=== PATIENT | female | born 1965 | race Two or more races ===

== ENCOUNTER 2016-10-25 17:23 | Emergency (ER) | payer OTHER ==
[~2016-10-25 17:23] MED LIST: IBUP-1060 PO; INSU100V8 SQ; insulin; metformin
[2016-10-25 17:32] VITALS: BP 134/74
[2016-10-25] MEDS ORDERED: FLUT9.9S NS (18:36)
[2016-10-25] MEDS ORDERED: PROAIR RESPICL90 MCG IH (18:36)
[2016-10-25] MEDS ORDERED: PROM5SYR2 PO (18:36)
--- NOTE | 2016-10-25 18:36 | PHYS DOC ---
Past Medical History Past Medical History: Diabetes-Type II Past Surgical History: , Hysterectomy Additional Past Surgical Histo: neck surgery Alcohol Use: None Drug Use: None Adult General Chief Complaint Chief Complaint: Congestion HPI HPI Patient is a 50 year old female who presents with a productive cough with nasal congestion for 3 days. Patient denies any fevers. Denies any body aches. Review of Systems Review of Systems Constitutional: See history of present illness Eyes: Denies change in visual acuity, redness, or eye pain [] HENT: Nasal congestion Respiratory: Productive cough Cardiovascular: No additional information not addressed in HPI [] GI: Denies abdominal pain, nausea, vomiting, bloody stools or diarrhea [] : Denies dysuria or hematuria [] Musculoskeletal: Denies back pain or joint pain [] Integument: Denies rash or skin lesions [] Neurologic: Denies headache, focal weakness or sensory changes [] Endocrine: Denies polyuria or polydipsia [] Allergies Allergies Allergies Coded Allergies Type Severity Reaction Last Updated Verified No Known Drug Allergies 10/01/14 No Physical Exam Physical Exam Constitutional: Well developed, well nourished, no acute distress, non-toxic appearance. [] HENT: Normocephalic, atraumatic, bilateral external ears normal, oropharynx moist, no oral exudates, patient is nasally congested. Eyes: PERRLA, EOMI, conjunctiva normal, no discharge. [] Neck: Normal range of motion, no tenderness, supple, no stridor. [] Cardiovascular:Heart rate regular rhythm, no murmur [] Lungs & Thorax: Bilateral breath sounds clear to auscultation [] Abdomen: Bowel sounds normal, soft, no tenderness, no masses, no pulsatile masses. [] Skin: Warm, dry, no erythema, no rash. [] Back: No tenderness, no CVA tenderness. [] Extremities: No tenderness, no cyanosis, no clubbing, ROM intact, no edema. [] Neurologic: Alert and oriented X 3, normal motor function, normal sensory function, no focal deficits noted. [] Psychologic: Affect normal, judgement normal, mood normal. [] Current Patient Data Vital Signs Vital Signs Date Time Temp Pulse Resp B/P Pulse Ox O2 Delivery O2 Flow Rate FiO2 10/25/16 17:32 97.8 75 20 100 Room Air 97.8 EKG EKG [] Radiology/Procedures Radiology/Procedures [] Course & Med Decision Making Course & Med Decision Making Pertinent Labs and Imaging studies reviewed. (See chart for details) This is a 50-year-old female patient who presents with a productive cough with nasal congestion for 3 days. Patient denies any fever. Chest x-ray interpreted by Dr. Das is negative for any acute findings. Symptoms are currently viral. Given a prescription for Flonase. Given a prescription for cough medicine. Over- the-counter medicines also recommended. Follow-up with primary care doctor week. Dragon Disclaimer Dragon Disclaimer This electronic medical record was generated, in whole or in part, using a voice recognition dictation system. Departure Departure Impression: Primary Impression: Upper respiratory infection Additional Impression: Cough Disposition: 01 HOME, SELF-CARE Condition: STABLE Referrals: VIRGEN IZQUIERDO MD (PCP) Follow-up with your own doctor in one week Patient Instructions: Cough, Adult, Upper Respiratory Infection, Adult Additional Instructions: You were seen for nasal congestion and cough. These symptoms are viral. Your chest x-ray is negative for any pneumonia or any acute findings. We put you on medications to manage your symptoms. Take them as prescribed. Follow-up with your own doctor in one week. Come back to the emergency room if symptoms worsen. Scripts Promethazine HCl/Codeine (Prometh-Codein 6.25-10 mg/5 ml)5 Ml Syrup5 Ml PO Q6HRS PRN COUGH #90 Prov:DALI BOWMAN APRN 10/25/16 Albuterol Sulfate (Proair Respiclick)90 Mcg Aer.pow.ba1 Puff IH PRN Q6HRS PRN SHORTNESS OF BREATH #1 INHALER Prov:DALI BOWMAN APRN 10/25/16 Fluticasone Propionate (Flonase Allergy Relief)9.9 Ml [place].susp2 Sprays NS DAILY #1 BOTTLE Prov:DALI BOWMAN APRN 10/25/16 Problem Qualifiers Primary Impression: Upper respiratory infection URI type: unspecified URI Qualified Code: J06.9 - Acute upper respiratory infection, unspecified DALI BOWMAN APRN Oct 25, 2016 18:36
--- NOTE | 2016-10-26 07:17 | RAD ---
Indication: Epigastric pain and cough. Time of exam 1733 hours. Comparison is made with prior chest from 02/17/2007. FINDINGS: The heart size is normal. The lungs are clear. No pleural effusion or pneumothorax is identified. The pulmonary vascularity is normal. IMPRESSION: No acute abnormality detected.
== END 2016-10-25 18:43 | disposition home or self-care (01) ==
LOC: ER 17:23
DX: J06.9 Acute upper respiratory infection, unspecified (principal); E11.9 Type 2 diabetes mellitus without complications; Z90.710 Acquired absence of both cervix and uterus
CPT/HCPCS: 71020; 99284-25

== ENCOUNTER → 2017-07-12 | Outpatient (CLI) | payer OTHER ==
[~2017-07-12] MED LIST changes: +FLUT9.9S NS; +PROAIR RESPICL90 MCG IH; +PROM5SYR2 PO
--- NOTE | 2017-07-12 15:43 | RAD ---
Indication left shoulder pain. Internally and externally rotated views of the left shoulder were obtained as well as a Y view. No acute or significant bony finding is seen.
--- NOTE | 2017-07-12 15:47 | RAD ---
Indication shoulder pain. AP odontoid and lateral views of the cervical spine were obtained. Anterior fusion is noted extending from C4 through C6. No complication is seen. An osteophyte is noted at C3. No acute finding is seen. The prevertebral soft tissues appear normal. IMPRESSION: Postop changes. No acute finding seen
== END | disposition home or self-care (01) ==
LOC: RAD 14:53
PROVIDERS: ATTEND Family Medicine
DX: M54.2 Cervicalgia (principal); M77.8 Other enthesopathies, not elsewhere classified; M25.512 Pain in left shoulder
CPT/HCPCS: 72040; 73030

== ENCOUNTER → 2017-07-17 | Outpatient (CLI) | payer OTHER ==
--- NOTE | 2017-07-17 08:59 | RAD ---
DATE: 07/17/2017. EXAM: DIGITAL SCREEN BILAT W/CAD. HISTORY: Routine mammographic screening. COMPARISON: None available. This is interpreted as a baseline study.. This study was interpreted with the benefit of Computerized Aided Detection (CAD). FINDINGS: The breast parenchyma is primarily fatty replaced. Breast parenchyma level density A.. There are no suspicious masses, microcalcifications or architectural distortion. There is no skin thickening or axillary adenopathy. Scattered punctate calcifications are benign. BI-RADS CATEGORY: 2 BENIGN FINDING(S). RECOMMENDED FOLLOW-UP: 12M 12 MONTH FOLLOW-UP. PQRS compliance statement: Patient information was entered into a reminder system with a target due date 07/17/2018 for the next mammogram. Mammography is a sensitive method for finding small breast cancers, but it does not detect them all and is not a substitute for careful clinical examination. A negative mammogram does not negate a clinically suspicious finding and should not result in delay in biopsying a clinically suspicious abnormality. "Our facility is accredited by the [employer] Mammography Program."
== END | disposition home or self-care (01) ==
LOC: MAMMO 08:04
PROVIDERS: ATTEND Obstetrics & Gynecology
DX: Z12.31 Encounter for screening mammogram for malignant neoplasm of breast (principal)
CPT/HCPCS: G0202; 77067

== ENCOUNTER → 2017-08-14 | Day surgery (SDC) | payer OTHER ==
[~2017-08-14] MED LIST changes: +CYCL5TAB PO; +HYDROmorphone 2 MG/ML VIAL IV PRN; +IV RINGERS,LACTATED 1000ML 1,000 ML IV SCH; +LIDOCAINE 1% PF 2 ML VIAL. ID PRN; +MIDAZOLAM HCL/PF 2 MG/2 ML VIAL. IV PRN; +MINO50CA PO; +MORPHINE SULFATE 4 MG/ML DISP.SYRIN. IV PRN; +NAPR-677 PO; +ONDANSETRON PF 4 MG/2 ML VIAL. IV PRN; +PROCHLORPERAZINE 10 MG/2 ML VIAL. IV PRN; +PROPOFOL 40 ML IV ONE; +fentaNYL PF VIAL 100 MCG/2 ML VIAL IV PRN
[2017-08-14 06:49] LABS: NEG OBC UR NEG; POS OBC UR POS
[2017-08-14 07:45] VITALS: BP 106/49
== END | disposition home or self-care (01) ==
LOC: ENDOS 06:11
PROVIDERS: ATTEND Internal Medicine Gastroenterology
DX: Z12.11 Encounter for screening for malignant neoplasm of colon (principal); K64.0 First degree hemorrhoids; E66.9 Obesity, unspecified; F32.9 Major depressive disorder, single episode, unspecified; E11.9 Type 2 diabetes mellitus without complications; Z86.69 Personal history of other diseases of the nervous system and sense organs; Z98.51 Tubal ligation status; Z90.710 Acquired absence of both cervix and uterus; Z86.39 Personal history of other endocrine, nutritional and metabolic disease
CPT/HCPCS: 45378; 81025; 82962; J2704

== ENCOUNTER → 2018-03-06 | Outpatient (CLI) | payer OTHER ==
[2018-03-06] MEDS: LIDOCAINE 1% Multi-Dose 20 ML VIAL. ID (14:53)
[2018-03-06] MEDS: BUPIVACAINE MPF 0.5% 10 ML VIAL for KCIC. IJ (14:53)
[2018-03-06] MEDS: methylPREDNISolone ACETATE 40 MG/ML VIAL. INT ART (14:53)
== END | disposition home or self-care (01) ==
LOC: KCIC 13:56
DX: M25.512 Pain in left shoulder (principal); M75.22 Bicipital tendinitis, left shoulder; E66.9 Obesity, unspecified; Z90.710 Acquired absence of both cervix and uterus; Z98.51 Tubal ligation status; E11.9 Type 2 diabetes mellitus without complications; F32.9 Major depressive disorder, single episode, unspecified; Z79.84 Long term (current) use of oral hypoglycemic drugs
CPT/HCPCS: 20610; 77002; J1030

== ENCOUNTER → 2018-07-25 | Outpatient (CLI) | payer OTHER ==
[2017-08-14 07:45] VITALS: BP 106/49
[~2018-07-25] MED LIST changes: -HYDROmorphone 2 MG/ML VIAL IV PRN; -IV RINGERS,LACTATED 1000ML 1,000 ML IV SCH; -LIDOCAINE 1% PF 2 ML VIAL. ID PRN; -MIDAZOLAM HCL/PF 2 MG/2 ML VIAL. IV PRN; -MINO50CA PO; +MINO50CA3 PO; -MORPHINE SULFATE 4 MG/ML DISP.SYRIN. IV PRN; -ONDANSETRON PF 4 MG/2 ML VIAL. IV PRN; -PROCHLORPERAZINE 10 MG/2 ML VIAL. IV PRN; -PROPOFOL 40 ML IV ONE; -fentaNYL PF VIAL 100 MCG/2 ML VIAL IV PRN
--- NOTE | 2018-07-25 16:20 | RAD ---
MR of the left shoulder Indication: Biceps tendinitis. Left shoulder pain, worse over the past year. Technique: Standard multiplanar sequences are obtained. Findings: Artifact: No significant image degradation. Acromioclavicular joint: Degenerative spurring with undersurface osteophytes. Rotator cuff: * Supraspinatus-infraspinatus tendon: Complete full-thickness supraspinatus tear, measures 2.5 cm AP diameter, with 2 cm retraction. * Subscapularis tendon: Tendinosis with mild partial tear * Muscle bulk: Mild atrophy * Subacromial subdeltoid bursa: Small effusion. Fluid: Trace glenohumeral effusion. Mild fluid in the subcoracoid bursa. Glenohumeral cartilage: No acute defect or advanced DJD. Labrum: No evidence of labral detachment. Biceps tendon: Tendinosis with at least partial tearing at the bicipital groove entrance. Bones: No lesion or acute fracture. Soft tissue: No acute findings. Impression: 1. Rotator cuff tear. Moderate full-thickness retracted tear of the supraspinatus tendon, mild partial subscapularis tendon tear. 2. Biceps tendinosis with tearing. Electronically signed by: Darwin Coelho MD (07/25/2018 4:17 PM) [id number]
== END | disposition home or self-care (01) ==
LOC: MRI 14:08
PROVIDERS: ATTEND Orthopaedic Surgery Sports Medicine
DX: S46.012A Strain of muscle(s) and tendon(s) of the rotator cuff of left shoulder, initial encounter (principal); M25.412 Effusion, left shoulder; M25.712 Osteophyte, left shoulder; M75.22 Bicipital tendinitis, left shoulder; X58.XXXA Exposure to other specified factors, initial encounter; Y93.89 Activity, other specified; Y92.89 Other specified places as the place of occurrence of the external cause; Y99.8 Other external cause status
CPT/HCPCS: 73221

== ENCOUNTER → 2018-07-29 | Outpatient (CLI) | payer OTHER ==
[2017-08-14 07:45] VITALS: BP 106/49
--- NOTE | 2018-07-30 09:32 | RAD ---
DATE: 07/29/2018 EXAM: MAMMO CUATE SCREENING BILATERAL HISTORY: Routine screening COMPARISON: 07/17/2017 This study was interpreted with the benefit of Computerized Aided Detection (CAD). Breast Density: FATTY The breast parenchyma is primarily fatty replaced. Breast parenchyma level density A. FINDINGS: 2-D and 3-D tomosynthesis imaging was performed in CC and MLO projections. No new or enlarging breast densities are seen. No suspicious microcalcifications are evident. IMPRESSION: There is no mammographic evidence of malignancy either breast. BI-RADS CATEGORY: 1 NEGATIVE RECOMMENDED FOLLOW-UP: 12M 12 MONTH FOLLOW-UP PQRS compliance statement: Patient information was entered into a reminder system with a target due date for the next mammogram. Mammography is a sensitive method for finding small breast cancers, but it does not detect them all and is not a substitute for careful clinical examination. A negative mammogram does not negate a clinically suspicious finding and should not result in delay in biopsying a clinically suspicious abnormality. "Our facility is accredited by the [employer] Mammography Program."
== END | disposition home or self-care (01) ==
LOC: MAMMO 15:11
PROVIDERS: ATTEND Obstetrics & Gynecology
DX: Z12.31 Encounter for screening mammogram for malignant neoplasm of breast (principal)
CPT/HCPCS: 77063; 77067

== ENCOUNTER 2018-09-10 07:47 | Day surgery (SDC) | payer OTHER ==
[~2018-09-10] VITALS: Ht 160 cm; Wt 78.0 kg
[~2018-09-10 07:47] MED LIST changes: +HYDROmorphone 2 MG/ML VIAL IV PRN; +IV RINGERS,LACTATED 1000ML 1,000 ML IV SCH; +LIDOCAINE 1% PF 2 ML VIAL. ID PRN; +MORPHINE SULFATE 2 MG/ML VIAL. IV PRN; +ONDANSETRON PF 4 MG/2 ML VIAL. IV PRN; +PROCHLORPERAZINE 10 MG/2 ML VIAL. IV PRN; +fentaNYL PF VIAL 100 MCG/2 ML VIAL IV PRN
[2018-09-10] MEDS ORDERED: MIDAZOLAM HCL/PF 2 MG/2 ML VIAL. ONE ×2 (08:35→08:58)
--- NOTE | 2018-09-10 08:43 | DISCH ---
DISCHARGE INSTRUCTIONS Condition on Discharge Condition on Discharge: Stable Activity After Discharge Activity Instructions for Disc: Activity as tolerated, Other, see below Other activity instructions: arm to remain in sling Driving Instructions after Dis: Do not drive today Weight Bearing Status after Di: No restrictions, Non weight bearing Diet after Discharge Diet after Discharge: Regular Wound Incision Care Wound/Incision Care: Ice to area for comfort, Keep wound/cast CDI, Change dressing Other wound/incision instructi: ok to change dressing after [address] after DC Call your doctor for: Concerns you may have Follow-Up Follow up with: [place] in 2 wks RICKI MONET II, MD Sep 10, 2018 08:43
[2018-09-10] MEDS ORDERED: LIDOCAINE 2% PF 2ML VIAL. ONE (08:59)
[2018-09-10] MEDS ORDERED: BUPIVACAINE MPF 0.5% 30 ML VIAL. ONE ×2 (08:59→09:02)
[2018-09-10] MEDS ORDERED: EPINEPHrine 1 MG/ML VIAL ONE (08:59)
[2018-09-10] MEDS ORDERED: EPINEPHrine VIAL 30 MG/30 ML VIAL ONE (09:02)
[2018-09-10] MEDS ORDERED: LIDOCAINE 1% PF 30 ML VIAL. ONE (09:02)
[2018-09-10] MEDS ORDERED: INSULIN LISPRO 100 UNIT/ML 3ML VIAL. SQ ONE ×2 (09:15→11:00)
[2018-09-10] MEDS ORDERED: DEXAMETHASONE SOD PHOS 20 MG/5 ML VIAL. ONE (10:38)
[2018-09-10] MEDS ORDERED: PROPOFOL 20 ML IV ONE (10:38)
[2018-09-10] MEDS ORDERED: LIDOCAINE 2% PF Vial for OR 5 ML VIAL. ONE (10:38)
[2018-09-10] MEDS ORDERED: SEVOFLURANE 61 TO 120 MINUTES. IH ONE (10:38)
[2018-09-10] MEDS ORDERED: ONDANSETRON PF 4 MG/2 ML VIAL. ONE (10:38)
[2018-09-10] MEDS ORDERED: KETOROLAC 30 MG/ML INJ FOR OR. INJ ONE (10:38)
[2018-09-10] MEDS ORDERED: oxyCODONE/APAP 5/325 1 TAB TABLET ONE (12:08)
[2018-09-10] MEDS ORDERED: oxyCODONE/APAP 5/325 1 TAB TABLET PO ONE (12:15)
--- NOTE | 2018-09-10 12:42 | PDOC4 ---
Operative Note Operative Note Date of procedure: 09/10/2018 Surgeon: Jordy Monet Spray Operator: Shayla Vaz, certified rehabilitation counselor Preoperative diagnosis: left shoulder rotator cuff tear Postoperative diagnosis: Same Procedure performed: arthroscopic left shoulder rotator cuff repair Anesthesia: Gen. plus regional nerve block Blood loss: 10 mL Complications: None Findings: intact glenohumeral cartilage Intact labrum circumferentially Fraying and upper border of subscapularis 2.5 cm rotator cuff tear Small amount of fraying of biceps tendon No loose bodies Components inserted: Brewster and nephew helacoil anchor X2; footprint for lateral row fixation Reason for procedure: Patient is a very pleasant female who has had persistent shoulder pain and dysfunction for several months. Clinical and radiographic examination including MRI were consistent with the above preoperative diagnoses and after failure of conservative therapies including physical therapy, anti- inflammatories, and injections, she diet discussed the risks, benefits, alternatives to proceeding with surgery and she wished to proceed. Description of procedure: Patient was greeted in the preoperative area by myself where the correct extremity was verified and marked. She was taken back to the operative suite after she had regional anesthesia placed by the anesthesiology team. Once in the operating room, underwent successful induction of a general anesthetic. Her antibiotics have been started. She was then sat up in a beachchair position with large pad under her legs, C-spine maintained in neutral position, she was secured to the bed with all pressure points padded. After this, her left upper extremity and shoulder were prepped and draped in our usual sterile fashion and our standard preoperative timeout was conducted. I then palpated and marked surface anatomy and used a spinal needle to localize a posterior superior portal and incised skin in accordance with this. After this , I entered the glenohumeral joint with the blunt arthroscopic trocar followed by the camera. I then used a spinal needle to localize an anterosuperior portal and incised skin in accordance with this. I then introduced the probe and conducted my diagnostic arthroscopy with above noted findings. I then created my lateral portal under spinal localization and inserted the shaver to prepare the rotator cuff footprint, taking care not to decorticate. After this, I repositioned the camera into the subacromial space and performed a bursectomy with comminution of shaver and electrocautery device. I then placed my cannula through the lateral portal. I then created an accessory anterolateral and posterolateral portals for suture management. I then used my starting awl to create 2 holes for my suture anchors and placed 2 suture anchors. I then shuttled the sutures through in a simple configuration and tied them down with arthroscopic knot-tying techniques from posterior to anterior, I was careful not to entrap the biceps tendon anteriorly. I cut one and from each suture, I used the remaining limb from all 4 to incorporate this into a lateral row repair with a footprint anchor. I tested the repair, no motion or gapping under passive range of motion. I removed all excess arthroscopic fluid and the arthroscopic interpretation. The portals were closed with simple interrupted 3- 0 nylon. The shoulder and arm were cleansed and dried and a sterile dressing was applied followed by an abduction pillow sling. Patient tolerated surgery well. No complications. At the conclusion of surgery, the patient was laid gently supine and transferred gently supine to the recovery room cart and taken to PACU in a stable and extubated condition. Postoperative plan is to be nonweightbearing for 6 weeks. Arm to remain in the sling. Postoperative instructions were discussed with the patient and given written form. Shell follow up with me in 2 weeks, sooner should a problem arise. JORDY MONET II, MD Sep 10, 2018 12:42
[2018-09-10 12:50] VITALS: BP 122/72
== END 2018-09-10 12:50 | disposition home or self-care (01) ==
LOC: SURG 07:47
PROVIDERS: ATTEND Orthopaedic Surgery Sports Medicine
DX: S46.012A Strain of muscle(s) and tendon(s) of the rotator cuff of left shoulder, initial encounter (principal); S46.212A Strain of muscle, fascia and tendon of other parts of biceps, left arm, initial encounter; F32.9 Major depressive disorder, single episode, unspecified; E11.9 Type 2 diabetes mellitus without complications; Z98.51 Tubal ligation status; M19.90 Unspecified osteoarthritis, unspecified site; Z90.710 Acquired absence of both cervix and uterus; Z98.890 Other specified postprocedural states; Z98.1 Arthrodesis status; M48.02 Spinal stenosis, cervical region; Z79.899 Other long term (current) drug therapy; Z79.84 Long term (current) use of oral hypoglycemic drugs; X58.XXXA Exposure to other specified factors, initial encounter; Y93.89 Activity, other specified; Y92.89 Other specified places as the place of occurrence of the external cause; Y99.8 Other external cause status
CPT/HCPCS: 29827; 82962; A7015; C1713; C1782; J0171; J0690; J1100; J1885; J2001; J2250; J2405; J2704; J3490

== ENCOUNTER 2019-03-30 14:06 | Emergency (ER) | payer OTHER ==
[~2019-03-30] VITALS: Ht 160 cm; Wt 81.6 kg
[~2019-03-30 14:06] MED LIST changes: -HYDROmorphone 2 MG/ML VIAL IV PRN; -IV RINGERS,LACTATED 1000ML 1,000 ML IV SCH; -LIDOCAINE 1% PF 2 ML VIAL. ID PRN; -MORPHINE SULFATE 2 MG/ML VIAL. IV PRN; -ONDANSETRON PF 4 MG/2 ML VIAL. IV PRN; -PROCHLORPERAZINE 10 MG/2 ML VIAL. IV PRN; -fentaNYL PF VIAL 100 MCG/2 ML VIAL IV PRN
[2019-03-30] MEDS ORDERED: DIPHTH,PERTUSS(ACELL),TET TOX 0.5 ML DISP.SYRIN. VAX IM ONE (15:30)
--- NOTE | 2019-03-30 15:42 | PHYS DOC ---
Past Medical History Past Medical History: Diabetes-Type II Past Surgical History: , Hysterectomy, Other Additional Past Surgical Histo: neck surgery, Left rotator cuff Alcohol Use: None Drug Use: None Adult General Chief Complaint Chief Complaint: MECHANICAL FALL HPI HPI Patient is a 53 year old female with history of diabetes type 2 who presents to the ED today complaining of 5 out of 10 bilateral jaw pain, knee pain, wrist pain, status post falling. Patient works at [employer], was walking on a sticky floor slid and fell. No LOC. Patient denies being on blood thinners. States the pain is worse on the left wrist right knee and bilateral jaw and requesting imaging. Patient is refusing imaging on the left knee and right wrist. Review of Systems Review of Systems Constitutional: Denies fever or chills [] Eyes: Denies change in visual acuity, redness, or eye pain [] HENT: Reports bilateral jaw pain. Denies nasal congestion or sore throat [] Respiratory: Denies cough or shortness of breath [] Cardiovascular: No additional information not addressed in HPI [] GI: Denies abdominal pain, nausea, vomiting, bloody stools or diarrhea [] : Denies dysuria or hematuria [] Musculoskeletal: Reports bilateral wrist pain, bilateral knee pain Integument: Denies rash or skin lesions [] Neurologic: Denies headache, focal weakness or sensory changes [] All other systems were reviewed and found to be within normal limits, except as documented in this note. Current Medications Current Medications Current Medications Medications (Trade) Dose Ordered Sig/Rsoe Marie Start Time Stop Time Status Last Admin Dose Admin Diphtheria/ Tetanus/Acell Pertussis (Boostrix) 0.5 ml ONCE ONCE 03/30/19 15:30 03/30/19 15:35 DC 03/30/19 15:57 0.5 ML Allergies Allergies Allergies Coded Allergies Type Severity Reaction Last Updated Verified No Known Drug Allergies 08/14/17 No Physical Exam Physical Exam Constitutional: Well developed, well nourished, no acute distress, non-toxic appearance. [] HENT: Normocephalic, atraumatic, bilateral external ears normal, oropharynx moist, no oral exudates, nose normal. No crepitus noted on the jaw bilaterally upper and lower sides. Eyes: PERRLA, EOMI, conjunctiva normal, no discharge. [] Neck: Normal range of motion, no tenderness, supple, no stridor. [] Cardiovascular:Heart rate regular rhythm, no murmur [] Lungs & Thorax: Bilateral breath sounds clear to auscultation [] Abdomen: Bowel sounds normal, soft, no tenderness, no masses, no pulsatile masses. [] Skin: Warm, dry, no erythema, no rash. [] Back: No tenderness, no CVA tenderness. [] Extremities: Right knee with an abrasion, slight tenderness on palpation of the anterior right knee. Full range of motion to bilateral knees. Negative Isaac sign, negative Rosendo sign, negative anterior-posterior drawer sign. +2 bilateral pedal pulses. Left wrist and right wrist with no obvious deformity. No scaphoid tenderness bilaterally. Full range of motion to bilateral wrist and fingers. +2 bilateral radial pulses. Adequate radial, medial, ulnar sensation to bilateral fingers. Cap refill less than 2 seconds bilaterally. Neurologic: Alert and oriented X 3, normal motor function, normal sensory function, no focal deficits noted. [] Psychologic: Affect normal, judgement normal, mood normal. [] Current Patient Data Vital Signs Vital Signs Date Time Temp Pulse Resp B/P (MAP) Pulse Ox O2 Delivery O2 Flow Rate FiO2 03/30/19 15:16 98.8 98 18 159/80 (106) 99 Room Air 98.8 EKG EKG [] Radiology/Procedures Radiology/Procedures []PROCEDURE: [facility] Compliance Statement: One or more of the following individualized dose reduction techniques were utilized for this examination: 1. Automated exposure control 2. Adjustment of the mA and/or kV according to patient size 3. Use of iterative reconstruction technique CT head, maxillofacial and cervical spine without contrast 03/30/2019 3:18 PM INDICATION: Fall on face with neck pain COMPARISON: None available TECHNIQUE: Multiple axial CT images of the head were obtained from skull base through the vertex without intravenous contrast. Multiple axial CT images of the cervical spine and maxillofacial structures were obtained without intravenous contrast. Coronal and sagittal reformats are provided. FINDINGS: Head: Ventricles, sulci and basal cisterns are within normal limits. There is no hydrocephalus. Blum-white matter differentiation is normal. There is no acute intracranial hemorrhage. There is no mass, mass effect or midline shift. Posterior fossa is normal in appearance. There is no acutely displaced nasal bone fracture. Osseous orbits are intact. Globes are spherical and contour. There is no lens displacement. Paranasal sinuses are well aerated. Ostiomeatal units are widely patent. Nasal septum is minimally deviated to the left. Maxilla and mandible appear intact. No significant soft tissue swelling is identified. Pterygoid plates are intact. Mastoid air cells are well aerated. Cervical spine: Alignment of the cervical spine is normal. Skull base is intact. Craniocervical junction is normal in appearance. Atlantoaxial articulation is normal. Vertebral body heights are maintained without evidence for acute fracture. Anterior cervical discectomy and fusion is identified from C4 through C6. At C3-C4, there is a central disc extrusion resulting in at least moderate spinal canal stenosis. There is no prevertebral soft tissue swelling. Thyroid gland is normal in appearance. Visualized portions of the lung apices are normal without evidence for suspicious pulmonary nodule or infiltrate. IMPRESSION: 1. No acute intracranial hemorrhage. 2. No acute fracture or malalignment of the cervical spine. 3. No acute maxillofacial fracture. 4. Central disc extrusion at C3-C4 results in at least moderate spinal canal stenosis. Electronically signed by: Jannette Armstrong MD (03/30/2019 3:48 PM) [id number] DICTATED and SIGNED BY: JANNETTE ARMSTRONG MD DATE: 03/30/19 3604 PROCEDURE: KNEE RIGHT 3V KNEE RIGHT 3V, WRIST 3V LEFT History: Patient fell. Left wrist and right knee pain.. 3 view right knee No evidence of an acute fracture. No bone destruction. Joint spaces are intact. No significant soft tissue abnormality. IMPRESSION: No evidence of acute fracture or dislocation. 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 No evidence of acute fracture. No evidence of dislocation. No aggressive bone destruction. IMPRESSION: No evidence of acute fracture or dislocation. MR could be of benefit for further evaluation if symptoms do not improve. Electronically signed by: Darwin Coelho MD (03/30/2019 3:51 PM) [id number] DICTATED and SIGNED BY: DARWIN COELHO MD DATE: 03/30/19 3013 Course & Med Decision Making Course & Med Decision Making Pertinent Labs and Imaging studies reviewed. (See chart for details) This is a 53-year-old female patient presenting to the ED today with wrist pain bilaterally, lateral knee pain and neck and jaw pain after falling. CT of the head, maxillofacial, cervical spine are negative. Right knee x-ray, left wrist x-rays are negative for any acute findings. Patient refused right wrist and left wrist xrays. Tetanus updated, discharged to home. Ice and elevation encouraged. Follow-up with PCP in 1-2 weeks. Dragon Disclaimer Dragon Disclaimer This electronic medical record was generated, in whole or in part, using a voice recognition dictation system. Departure Departure Impression: Primary Impression: Fall from standing Additional Impressions: Left wrist sprain Contusion of right knee Acute cervical sprain Facial contusion Disposition: HOME, SELF-CARE Condition: STABLE Referrals: DARWIN IZQUIERDO MD (PCP) follow up in 2 weeks Patient Instructions: Fall Prevention and Home Safety, Wrist Sprain with [facility] Additional Instructions: You were evaluated in the emergency room. Your CT of the head, neck, maxillofacial were negative for any acute findings. Your right knee x-rays and left wrist x-rays are negative. Ice elevate the affected areas. Follow-up with your doctor in 1-2 weeks. Tylenol or Motrin for pain. Problem Qualifiers Primary Impression: Fall from standing Encounter type: initial encounter Qualified Codes: W19.XXXA - Unspecified fall, initial encounter Additional Impressions: Left wrist sprain Encounter type: initial encounter Qualified Codes: S63.502A - Unspecified sprain of left wrist, initial encounter Contusion of right knee Encounter type: initial encounter Qualified Codes: S80.01XA - Contusion of right knee, initial encounter Acute cervical sprain Encounter type: initial encounter Qualified Codes: S13.9XXA - Sprain of j oints and ligaments of unspecified parts of neck, initial encounter Facial contusion Encounter type: initial encounter Qualified Codes: S00.83XA - Contusion of other part of head, initial encounter DALI BOWMAN DIRECTOR SECURITY RISK MANAGEMENT Mar 30, 2019 15:42
--- NOTE | 2019-03-30 15:51 | RAD ---
PQRS Compliance Statement: One or more of the following individualized dose reduction techniques were utilized for this examination: 1. Automated exposure control 2. Adjustment of the mA and/or kV according to patient size 3. Use of iterative reconstruction technique CT head, maxillofacial and cervical spine without contrast 03/30/2019 3:18 PM INDICATION: Fall on face with neck pain COMPARISON: None available TECHNIQUE: Multiple axial CT images of the head were obtained from skull base through the vertex without intravenous contrast. Multiple axial CT images of the cervical spine and maxillofacial structures were obtained without intravenous contrast. Coronal and sagittal reformats are provided. FINDINGS: Head: Ventricles, sulci and basal cisterns are within normal limits. There is no hydrocephalus. Blum-white matter differentiation is normal. There is no acute intracranial hemorrhage. There is no mass, mass effect or midline shift. Posterior fossa is normal in appearance. There is no acutely displaced nasal bone fracture. Osseous orbits are intact. Globes are spherical and contour. There is no lens displacement. Paranasal sinuses are well aerated. Ostiomeatal units are widely patent. Nasal septum is minimally deviated to the left. Maxilla and mandible appear intact. No significant soft tissue swelling is identified. Pterygoid plates are intact. Mastoid air cells are well aerated. Cervical spine: Alignment of the cervical spine is normal. Skull base is intact. Craniocervical junction is normal in appearance. Atlantoaxial articulation is normal. Vertebral body heights are maintained without evidence for acute fracture. Anterior cervical discectomy and fusion is identified from C4 through C6. At C3-C4, there is a central disc extrusion resulting in at least moderate spinal canal stenosis. There is no prevertebral soft tissue swelling. Thyroid gland is normal in appearance. Visualized portions of the lung apices are normal without evidence for suspicious pulmonary nodule or infiltrate. IMPRESSION: 1. No acute intracranial hemorrhage. 2. No acute fracture or malalignment of the cervical spine. 3. No acute maxillofacial fracture. 4. Central disc extrusion at C3-C4 results in at least moderate spinal canal stenosis. Electronically signed by: Ewa Boyer MD (03/30/2019 3:48 PM) [facility]
--- NOTE | 2019-03-30 15:54 | RAD ---
KNEE RIGHT 3V, WRIST 3V LEFT History: Patient fell. Left wrist and right knee pain.. 3 view right knee No evidence of an acute fracture. No bone destruction. Joint spaces are intact. No significant soft tissue abnormality. IMPRESSION: No evidence of acute fracture or dislocation. 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 No evidence of acute fracture. No evidence of dislocation. No aggressive bone destruction. IMPRESSION: No evidence of acute fracture or dislocation. MR could be of benefit for further evaluation if symptoms do not improve. Electronically signed by: Darwin Coelho MD (03/30/2019 3:51 PM) [facility]
[2019-03-30 16:26] VITALS: BP 129/64
== END 2019-03-30 16:26 | disposition home or self-care (01) ==
LOC: ER 14:06
DX: S13.9XXA Sprain of joints and ligaments of unspecified parts of neck, initial encounter (principal); S63.502A Unspecified sprain of left wrist, initial encounter; S80.01XA Contusion of right knee, initial encounter; S00.83XA Contusion of other part of head, initial encounter; E11.9 Type 2 diabetes mellitus without complications; Z98.890 Other specified postprocedural states; Z98.1 Arthrodesis status; M48.02 Spinal stenosis, cervical region; W18.39XA Other fall on same level, initial encounter; Y93.01 Activity, walking, marching and hiking; Y92.238 Other place in hospital as the place of occurrence of the external cause; Y99.0 Civilian activity done for income or pay
CPT/HCPCS: 70450; 70486; 72125; 73110; 73562; 90471; 90715; 99284-25

== ENCOUNTER → 2019-08-04 | Outpatient (CLI) | payer OTHER ==
--- NOTE | 2019-08-05 11:01 | RAD ---
DATE: 08/04/2019. EXAM: MAMMO CUATE SCREENING BILATERAL. HISTORY: Routine mammographic screening. COMPARISON: 07/29/2018. This study was interpreted with the benefit of Computerized Aided Detection (CAD). FINDINGS: Breast Density: FATTY The breast parenchyma is primarily fatty replaced. Breast parenchyma level density A.. There are no suspicious masses, microcalcifications or architectural distortion. The parenchymal pattern is stable. BI-RADS CATEGORY: 1 NEGATIVE. RECOMMENDED FOLLOW-UP: 12M 12 MONTH FOLLOW-UP. PQRS compliance statement: Patient information was entered into a reminder system with a target due date 08/04/2020 for the next mammogram. Mammography is a sensitive method for finding small breast cancers, but it does not detect them all and is not a substitute for careful clinical examination. A negative mammogram does not negate a clinically suspicious finding and should not result in delay in biopsying a clinically suspicious abnormality. "Our facility is accredited by the [employer] Mammography Program."
== END | disposition home or self-care (01) ==
LOC: MAMMO 14:22
PROVIDERS: ATTEND Obstetrics & Gynecology
DX: Z12.31 Encounter for screening mammogram for malignant neoplasm of breast (principal)
CPT/HCPCS: 77063; 77067

== ENCOUNTER → 2019-12-30 | Outpatient (CLI) | payer OTHER ==
[2019-12-30 11:52] LABS: CALCIUM 9.5 mg/dL (8.5-10.1); CREATININE 0.6 mg/dL (0.6-1.0); GFR 104.6; POTASSIUM 4.7 mmol/L (3.5-5.1)
[2019-12-30 12:02] LABS: CHOLESTEROL/HDL RATIO 4.5
== END ==
LOC: LAB 11:12
PROVIDERS: ATTEND Family Medicine
DX: Z13.9 Encounter for screening, unspecified (principal); E11.9 Type 2 diabetes mellitus without complications
CPT/HCPCS: 36415; 80048; 80061; 83036

== ENCOUNTER → 2020-04-15 | Outpatient (CLI) | payer OTHER ==
[2020-04-15 11:17] LABS: HEMATOCRIT 39.6 % (36.0-47.0); HEMOGLOBIN 13.6 g/dL (12.0-15.5); RED BLOOD COUNT 4.38 x10^6/uL (3.50-5.40); RED CELL DISTRIBUTION WIDTH 13.5 % (11.5-14.5); WHITE BLOOD COUNT 6.5 x10^3/uL (4.0-11.0)
[2020-04-15 11:30] LABS: ALBUMIN/GLOBULIN RATIO 1.1 (1.0-1.7); CALCIUM 9.1 mg/dL (8.5-10.1); CREATININE 0.7 mg/dL (0.6-1.0); GFR 87.5; POTASSIUM 4.5 mmol/L (3.5-5.1); TOTAL BILIRUBIN 0.5 mg/dL (0.2-1.0); TOTAL PROTEIN 7.5 g/dL (6.4-8.2)
[2020-04-15 11:32] LABS: CHOLESTEROL/HDL RATIO 4.1
[2020-04-16 01:08] LABS: HEMOGLOBIN A1C 6.9 % (4.8-5.6)
== END | disposition home or self-care (01) ==
LOC: LAB 10:26
PROVIDERS: ATTEND Family Medicine
DX: E11.65 Type 2 diabetes mellitus with hyperglycemia (principal)
CPT/HCPCS: 36415; 80053; 80061; 82043; 83036; 85027

== ENCOUNTER → 2020-06-02 | Outpatient (CLI) | payer OTHER ==
--- NOTE | 2020-06-02 08:36 | RAD ---
ABDOMEN COMPLETE History: Epigastric pain Comparison: None. Findings: Multiple sonographic images of the abdomen are submitted. There is no abnormality of the visualized pancreas. There is segmental visualization of the inferior vena cava. Abdominal aortic caliber is within normal limits up to 1.8 cm proximally. There is diffuse coarsening of the hepatic echotexture. Right lobe of the liver measured 17.9 cm longitudinal. Gallbladder is present. There is some internal shadowing echogenicity, no pericholecystic fluid or significant gallbladder wall thickening. Common bile duct is within normal limits at 0.5 cm. Right kidney measured 10.2 x 6.1 x 4.7 cm, no hydronephrosis. Spleen measured 9.5 cm. Left kidney measured 12.4 x 6.1 x 7.2 cm, no hydronephrosis. Impression: 1. There is hepatic steatosis. 2. There is cholelithiasis, no gallbladder wall thickening or pericholecystic fluid. Electronically signed by: Elder Hayden MD (06/02/2020 8:33 AM) [id number]
== END | disposition home or self-care (01) ==
LOC: US 06:41
PROVIDERS: ATTEND Family Medicine
DX: K76.0 Fatty (change of) liver, not elsewhere classified (principal); K80.20 Calculus of gallbladder without cholecystitis without obstruction
CPT/HCPCS: 76700

== ENCOUNTER 2020-07-11 07:31 | Day surgery (SDC) | payer OTHER ==
[~2020-07-11] VITALS: Ht 160 cm; Wt 86.0 kg
[~2020-07-11 07:31] MED LIST changes: +BUPIVACAINE MPF 0.5% 30 ML VIAL. ONE; +DULA1.5P SQ; +HYDROmorphone 2 MG/ML VIAL IV PRN; +IOHEXOL 300 MG/ML 50 ML VIAL. ONE; +IV RINGERS,LACTATED 1000ML 1,000 ML IV SCH; +LIDOCAINE 1% PF 2 ML VIAL. ID PRN; +METF10007 PO; +MORPHINE SULFATE 2 MG/ML VIAL. IV PRN; +ONDANSETRON PF 4 MG/2 ML VIAL. IV PRN; +PIOG45TA40 PO; +PROCHLORPERAZINE 10 MG/2 ML VIAL. IV PRN; +SURGICEL HEMOSTAT 4X8 EACH. ONE; +fentaNYL PF VIAL 100 MCG/2 ML VIAL IV PRN
[2020-07-11] MEDS ORDERED: LIDOCAINE 2% PF 5 ML VIAL. ONE (08:16)
[2020-07-11] MEDS ORDERED: fentaNYL PF VIAL 250 MCG/5 ML VIAL ONE (08:16)
[2020-07-11] MEDS: INSULIN LISPRO 100 UNIT/ML 3ML VIAL for OP,RR ONLY. SQ PRN ×2 (08:16→10:06)
[2020-07-11] MEDS ORDERED: MIDAZOLAM HCL/PF 2 MG/2 ML VIAL. ONE (08:16)
[2020-07-11] MEDS ORDERED: ROCURONIUM 50 MG/5 ML VIAL. ONE (08:16)
[2020-07-11] MEDS ORDERED: PROPOFOL 10 MG/ML (20ML) VIAL. IV ONE (08:16)
[2020-07-11] MEDS ORDERED: GLYCOPYRROLATE 1 MG/5 ML VIAL. ONE (09:05)
[2020-07-11] MEDS ORDERED: PHENYLEPHRINE in 0.9% NACL PF 1 MG/10 ML SYRINGE. IV ONE (09:05)
[2020-07-11] MEDS ORDERED: NEOSTIGMINE METHYLSULFATE 5 MG/5 ML SYRINGE. ONE (09:06)
[2020-07-11] MEDS ORDERED: SEVOFLURANE 61 TO 120 MINUTES. IH ONE (09:26)
[2020-07-11] MEDS ORDERED: KETOROLAC 30 MG/ML VIAL. ONE (09:37)
--- NOTE | 2020-07-11 09:48 | PDOC4 ---
Operative Note Operative Note Operative Note: Preoperative Diagnosis: Symptomatic cholelithiasis Postoperative Diagnosis: Same Procedure: Laparoscopic cholecystectomy with intraoperative cholangiogram Surgeons: Yasmani Etiologist: Miri LOUIS Anesthesia: Gen. Estimated Blood Loss: 20 mL Specimen: Gallbladder to pathology Drains: None Complications: None Indications: The patient is a 54-year-old female who is been experiencing recurrent upper abdominal pain consistent with biliary colic. Surgical treatment was offered by means of a laparoscopic cholecystectomy. The risks of surgery were discussed which include bleeding, infection, bile duct injury, bile leak, pain, the potential for additional surgeries or procedures. The patient understands and would like to proceed. Description: The patient was taken to the operating room and laid supine on the operating table. General anesthesia was performed. The abdomen was prepped with ChloraPrep and draped in a standard surgical fashion. A small infraumbilical incision was made with a scalpel. The Veress needle was then inserted and a pneumoperitoneum was then created. A 5 mm trocar was then inserted and the laparoscope was introduced. In the upper midabdomen a 5 mm trocar was inserted and in the right upper quadrant two 2.3 mm mini lap graspers were inserted. The gallbladder was retracted cephalad. The cystic duct was dissected free from surrounding tissues. One clip was placed on the duct near the gallbladder junction. An opening was made in the duct and a cholangiocatheter placed within and secured with a clip. Using contrast dye and fluoroscopy an intraoperative cholangiogram was performed that appeared unremarkable. The clip and catheter were then withdrawn. Three clips were placed on the cystic duct and it was divided. The cystic artery was then identified, dissected free, doubly clipped and divided as well. The gallbladder was then mobilized away from the liver with cautery. The umbilical 5 millimeter trocar was exchanged for an 11 millimeter trocar. The gallbladder was then placed in an endoscopic bag and extracted at the umbilical trocar site. The fascia there was closed with an 0 Vicryl suture. All blood and irrigation fluid was suctioned and hemostasis was good. The remaining ports were removed and the pneumoperitoneum was relieved. The skin incisions were injected with half percent Marcaine with epinephrine, and all were closed using 4-0 Monocryl suture. Steri-Strips and dressings were then applied. The patient tolerated the procedure well and was sent to the recovery room in stable condition. At the end of the case all counts were correct. MARY PAZ MD Jul 11, 2020 09:48
--- NOTE | 2020-07-11 09:50 | DISCH ---
DISCHARGE INSTRUCTIONS Condition on Discharge Condition on Discharge: Stable Activity After Discharge Activity Instructions for Disc: Other, see below (no lifting over 20 lbs X 2 weeks) Diet after Discharge Diet after Discharge: Regular Wound Incision Care Wound/Incision Care: Other, see below (may remove bandaids tomorrow and shower) Follow-Up Follow up with: Dr Paz in 2 weeks in office, call for appt [phone] MARY PAZ MD Jul 11, 2020 09:50
[2020-07-11] MEDS ORDERED: INSULIN LISPRO 100 UNIT/ML 3ML VIAL for OP,RR ONLY. SQ ONE ×2 (10:10)
--- NOTE | 2020-07-11 10:22 | RAD ---
CHOLANGIOGRAM INTRAOPERATIVE History: Cholangiogram, history of cholelithiasis Comparison: None. Findings: Interpretation is made of submitted images only, exam performed by different physician. Fluoroscopy time 0.23 minutes. 2 low resolution intraprocedural views from a cholangiogram are submitted. There has been introduction of contrast into the cystic duct. Common bile duct tapers normally, no defined intraluminal filling defect identified. There is contrast in the duodenum. Impression: 1. No defined filling defect is identified of the common bile duct. Electronically signed by: Elder Hayden MD (07/11/2020 10:19 AM) [facility]
[2020-07-11] MEDS ORDERED: OXYC-325 PO (10:54)
[2020-07-11] MEDS ORDERED: oxyCODONE/APAP 5/325 1 TAB TABLET PO ONE ×2 (11:00)
[2020-07-11 12:00] VITALS: BP 121/66
--- NOTE | 2020-07-13 11:07 | PATHOLOGY ---
[facility] Accession Number: [id number] . 01 Material submitted: . gallbladder - GALLBLADDER AND CONTENTS . 01 Clinical history: . SYMPTOMATIC CHOLELITHIASIS, GALLSTONES . 02 Diagnosis: Gallbladder, excision: - Mild chronic cholecystitis. - Cholesterolosis. - Lithiasis. . 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 . (ZAINABK:lauri; 07/12/2020) MBR 07/13/2020 1049 Local . 02 Electronically signed: . Silvana Jj MD, Pathologist NPI- [id number] . 01 Gross description: . The specimen is received in formalin, labeled "Miriam Maldonado, gallbladder and contents". Received is a previously punctured gallbladder measuring 6.7 x 3.8 x 1.3 cm in greatest dimensions displaying a pink-garcia serosal surface. Opening the specimen reveals a velvety, bile-stained mucosa with a gallbladder wall thickness of 0.1 cm. Calculi are present displaying a yellow-sandra and deposited appearance, and no masses or lesions are noted grossly. At the proximal margin, a single lymph node is identified measuring 0.5 cm in maximum dimensions. Revenue Stamper sections, to include the proximal margin and bisected lymph node, are submitted in cassette A1. (CAA; 07/11/2020) QAC/QAC 07/11/2020 1732 Local . 02 Pathologist provided ICD-10: K80.10, K82.4 . 02 CPT . 596630 Specimen Comment: A courtesy copy of this report has been sent to [phone], [phone] Specimen Comment: [id number] Specimen Comment: Report sent to / DR IZQUIERDO Performed at: 01 [facility] [address], [place], [place] [id number] MD Franky Frias MD Phone: [phone] Performed at: 02 [facility] [address] [place], [place] [id number] MD Chilango Ortega MD Phone: [phone]
== END 2020-07-11 12:25 | disposition home or self-care (01) ==
LOC: SURG 07:31
PROVIDERS: ATTEND Surgery
DX: K80.10 Calculus of gallbladder with chronic cholecystitis without obstruction (principal); Z20.828 Contact with and (suspected) exposure to other viral communicable diseases; F41.9 Anxiety disorder, unspecified; F32.9 Major depressive disorder, single episode, unspecified; E11.9 Type 2 diabetes mellitus without complications; Z79.899 Other long term (current) drug therapy; Z79.84 Long term (current) use of oral hypoglycemic drugs
CPT/HCPCS: 74300; 82962; 87426; 88304; A7015; J0690; J0780; J1815; J1885; J2250; J2370; J2704; J2710; J3010; J3490; J7030; J7120; Q9967; U0003-CS

== ENCOUNTER → 2020-08-08 | Outpatient (CLI) | payer OTHER ==
[2020-07-11 12:00] VITALS: BP 121/66
[~2020-08-08] MED LIST changes: -BUPIVACAINE MPF 0.5% 30 ML VIAL. ONE; -HYDROmorphone 2 MG/ML VIAL IV PRN; -IOHEXOL 300 MG/ML 50 ML VIAL. ONE; -IV RINGERS,LACTATED 1000ML 1,000 ML IV SCH; -LIDOCAINE 1% PF 2 ML VIAL. ID PRN; -MORPHINE SULFATE 2 MG/ML VIAL. IV PRN; -ONDANSETRON PF 4 MG/2 ML VIAL. IV PRN; +OXYC-325 PO; -PROCHLORPERAZINE 10 MG/2 ML VIAL. IV PRN; -SURGICEL HEMOSTAT 4X8 EACH. ONE; -fentaNYL PF VIAL 100 MCG/2 ML VIAL IV PRN
[2020-08-08 16:07] LABS: FREE T4 0.99 ng/dL (0.76-1.46); THYROID STIM HORMONE (TSH) 2.042 uIU/mL (0.358-3.74)
--- NOTE | 2020-08-09 15:31 | RAD ---
DATE: 08/08/2020 1:55 PM EXAM: MAMMO CUATE SCREENING BILATERAL HISTORY: Screening COMPARISON: 08/04/2019 Bilateral CC and MLO views of the breasts were performed. Bilateral breast tomosynthesis was performed in CC and MLO projections. This study was interpreted with the benefit of Computerized Aided Detection (CAD). FINDINGS: Breast Density: FATTY The Breast Parenchyma is primarily fatty replaced. Breast parenchyma level density A. No suspicious masses, microcalcifications or architectural distortion is present to suggest malignancy in either breast. The visualized axillae are unremarkable. IMPRESSION: No mammographic evidence of malignancy. BI-RADS CATEGORY: 1 NEGATIVE RECOMMENDED FOLLOW-UP: 12M 12 MONTH FOLLOW-UP Annual screening mammography is recommended, unless clinically indicated sooner based on symptoms or change in physical exam. PQRS compliance statement: Patient information was entered into a reminder system with a target due date for the next mammogram. Mammography is a sensitive method for finding small breast cancers, but it does not detect them all and is not a substitute for careful clinical examination. A negative mammogram does not negate a clinically suspicious finding and should not result in delay in biopsying a clinically suspicious abnormality. "Our facility is accredited by the [employer] Mammography Program."
== END ==
LOC: MAMMO 13:50
PROVIDERS: ATTEND Obstetrics & Gynecology
DX: Z12.31 Encounter for screening mammogram for malignant neoplasm of breast (principal); Z01.419 Encounter for gynecological examination (general) (routine) without abnormal findings
CPT/HCPCS: 36415; 77063; 77067; 83001; 84439; 84443

== ENCOUNTER → 2020-08-17 | Outpatient (CLI) | payer OTHER | LOC: LAB 15:10 | PROVIDERS: ATTEND Family Medicine | DX: B35.1 Tinea unguium (principal) | CPT/HCPCS: 36415; 84460 ==

== ENCOUNTER 2020-09-12 13:51 | Emergency (ER) | payer OTHER ==
[~2020-09-12] VITALS: Ht 162.6 cm; Wt 86.0 kg
[2020-09-12 15:16] VITALS: BP 140/51
--- NOTE | 2020-09-12 16:11 | RAD ---
Indications: Injury in the shower. Bruising of third digit. Left foot pain. Left ankle pain. 3 view left foot study: No acute fracture or dislocation or lytic process is seen. No periosteal reac tion is evident. Posterior and plantar spurs of the calcaneus are seen. There is calcification of the Achilles tendon consistent with calcific tendinitis. Three-view left ankle study: No acute fracture or dislocation or lytic process is seen. The mortise a nkle joint is intact. IMPRESSION: No acute fracture. Electronically signed by: Landon Springer MD (09/12/2020 4:08 PM) [id number]
[2020-09-12] MEDS ORDERED: IBUP-1007 PO (16:33)
--- NOTE | 2020-09-12 16:34 | PHYS DOC ---
Past Medical History Past Medical History: Diabetes-Type II Past Surgical History: , Hysterectomy, Other Additional Past Surgical Histo: neck surgery, Left rotator cuff Smoking Status: Never Smoker Alcohol Use: None Drug Use: None General Adult EDM: Chief Complaint: FOOT INJURY PAIN HPI: HPI: Patient is a 54 year old female who presents with she states that she slipped in the shower and hurt her left foot. She has bruising to the fourth dorsal toe with just 1+ swelling. She can wiggle her toes. She states this happened a day. Patient rates her pain a 5 out of 10 states it is throbbing but is not radiating. Patient has been walking on it is just painful. Patient has a history of diabetes, neck surgery, left rotator cuff surgery, , hysterectomy. Review of Systems: Review of Systems: Constitutional: Denies fever or chills. [] Eyes: Denies change in visual acuity. [] HENT: Denies nasal congestion or sore throat. [] Respiratory: Denies cough or shortness of breath. [] Cardiovascular: Denies chest pain or + left fourth toe 1-2+ edema. [] GI: Denies abdominal pain, nausea, vomiting, bloody stools or diarrhea. [] : Denies dysuria. [] Musculoskeletal: Denies back pain. +Left foot and +toes joint pain. [] Integument: Denies rash. + Left fourth toe bruising status [] Neurologic: Denies headache, focal weakness or sensory changes. [] Endocrine: Denies polyuria or polydipsia. [] Lymphatic: Denies swollen glands. [] Psychiatric: Denies depression or anxiety. [] Heart Score: Risk Factors: Risk Factors: DM, Current or recent (<one month) smoker, HTN, HLP, family history of CAD, obesity. Risk Scores: Score 0 - 3: 2.5% MACE over next 6 weeks - Discharge Home Score 4 - 6: 20.3% MACE over next 6 weeks - Admit for Clinical Observation Score 7 - 10: 72.7% MACE over next 6 weeks - Early Invasive Strategies Allergies: Allergies: Allergies Coded Allergies Type Severity Reaction Last Updated Verified No Known Drug Allergies 07/11/20 No Physical Exam: PE: Constitutional: Well developed, well nourished, no acute distress, non-toxic appearance. [] HENT: Normocephalic, atraumatic, bilateral external ears normal, oropharynx moist, no oral exudates, nose normal. [] Eyes: PERRLA, EOMI, conjunctiva normal, no discharge. [] Neck: Normal range of motion, no tenderness, supple, no stridor. [] Cardiovascular:Heart rate regular rhythm, no murmur [] Lungs & Thorax: Bilateral breath sounds clear to auscultation [] Abdomen: Bowel sounds normal, soft, no tenderness, no masses, no pulsatile masses. [] Skin: Warm, dry, no erythema, no rash. Left dorsal fourth toe bruising [] Back: No tenderness, no CVA tenderness. [] Extremities: Left toes tenderness, no cyanosis, no clubbing, ROM intact, left fourth toe 1-2+ edema. [] Neurologic: Alert and oriented X 3, normal motor function, normal sensory function, no focal deficits noted. [] Psychologic: Affect normal, judgement normal, mood normal. [] Current Patient Data: Vital Signs: Vital Signs Date Time Temp Pulse Resp B/P (MAP) Pulse Ox O2 Delivery O2 Flow Rate FiO2 09/12/20 15:16 98.7 78 12 140/51 (80) 97 Room Air 98.7 EKG: EKG: [] Radiology/Procedures: Radiology/Procedures: [] Impression: [facility] [address] [place] [address] IMAGING REPORT Signed PATIENT: JASON LUNSFORD EACCOUNT: [id number] : 1965 LOCATION: ER AGE: 54 SEX: F EXAM STATUS: REG ER ORD. PHYSICIAN: CAROL NORWOOD APRN REASON: left lateral ankle pain, injury in shower PROCEDURE: ANKLE LEFT 3V Indications: Injury in the shower. Bruising of third digit. Left foot pain. Left ankle pain. 3 view left foot study: No acute fracture or dislocation or lytic process is seen. No periosteal reaction is evident. Posterior and plantar spurs of the calcaneus are seen. There is calcification of the Achilles tendon consistent with calcific tendinitis. Three-view left ankle study: No acute fracture or dislocation or lytic process is seen. The mortise ankle joint is intact. IMPRESSION: No acute fracture. Electronically signed by: Yoel Springer MD (09/12/2020 4:08 PM) [id number] DICTATED and SIGNED BY: YOEL SPRINGER MD DATE: 09/12/20 [id number] [facility] [address] [place] [address] IMAGING REPORT Signed PATIENT: JASON LUNSFORD EACCOUNT: [id number] : 1965 LOCATION: ER AGE: 54 SEX: F EXAM STATUS: REG ER ORD. PHYSICIAN: CAROL NORWOOD APRN REASON: left foot pain, brusing to 3rd digit. injury in shower PROCEDURE: FOOT LEFT 3V Indications: Injury in the shower. Bruising of third digit. Left foot pain. Left ankle pain. 3 view left foot study: No acute fracture or dislocation or lytic process is seen. No periosteal reaction is evident. Posterior and plantar spurs of the calcaneus are seen. There is calcification of the Achilles tendon consistent with calcific tendinitis. Three-view left ankle study: No acute fracture or dislocation or lytic process is seen. The mortise ankle joint is intact. IMPRESSION: No acute fracture. Electronically signed by: Yoel Springer MD (09/12/2020 4:08 PM) [id number] DICTATED and SIGNED BY: YOEL SPRINGER MD DATE: 09/12/[id number] 0 Course & Med Decision Making: Course & Med Decision Making Pertinent Labs and Imaging studies reviewed. (See chart for details) See HPI. Pedal pulse strong present. No joint laxities or deformity. Skin pink warm and dry. Cap refill less than 2 seconds. Full range of motion of the ankle. X-ray showed no acute findings. Patient be put in a postop shoe. Patient to follow-up with orthopedics. [] Dragon Disclaimer: Dragon Disclaimer: This electronic medical record was generated, in whole or in part, using a voice recognition dictation system. Departure Departure Impression: Primary Impression: Injury of foot, left Qualified Codes: S99.922A - Unspecified injury of left foot, initial encounter Additional Impression: Bruise of toe Disposition: 01 DC HOME SELF CARE/HOMELESS Condition: STABLE Referrals: VIRGEN IZQUIERDO MD (PCP) HIRAM JOVEL MD Patient Instructions: Foot Contusion Additional Instructions: Use ice and elevation to help with pain and swelling. Take ibuprofen for your pain. Rest the extremity. Scripts Ibuprofen (IBUPROFEN) 600 Mg Tablet 600 MG PO PRN Q6HRS PRN for INFLAMMATION, #20 TAB Prov: CAROL NORWOOD APRN 09/12/20 CAROL NORWOOD APRN Sep 12, 2020 16:34
== END 2020-09-12 17:25 | disposition home or self-care (01) ==
LOC: ER 13:51
DX: S90.122A Contusion of left lesser toe(s) without damage to nail, initial encounter (principal); M25.572 Pain in left ankle and joints of left foot; R60.0 Localized edema; E11.9 Type 2 diabetes mellitus without complications; Z90.89 Acquired absence of other organs; Z90.710 Acquired absence of both cervix and uterus; Z98.890 Other specified postprocedural states; W01.0XXA Fall on same level from slipping, tripping and stumbling without subsequent striking against object, initial encounter; Y93.89 Activity, other specified; Y92.89 Other specified places as the place of occurrence of the external cause; Y99.8 Other external cause status
CPT/HCPCS: 73610; 73630; 99284

== ENCOUNTER → 2021-01-06 | Outpatient (CLI) | payer OTHER ==
[~2021-01-06] MED LIST changes: +IBUP-1007 PO
[2021-01-06 10:32] LABS: BASO # 0.1 x10^3/uL (0.0-0.2); BASO % 1 % (0-3); EOS # 0.1 x10^3/uL (0.0-0.7); EOS % 3 % (0-3); HEMATOCRIT 38.9 % (36.0-47.0); HEMOGLOBIN 13.3 g/dL (12.0-15.5); LYMPH # 1.9 x10^3/uL (1.0-4.8); LYMPH % 36 % (24-48); MEAN CORPUSCULAR HEMOGLOBIN 31 pg (25-35); MEAN CORPUSCULAR HGB CONC 34 g/dL (31-37); MEAN CORPUSCULAR VOLUME 90 fL (79-100); MONO # 0.4 x10^3/uL (0.0-1.1); MONO % 8 % (0-9); NEUT # 2.7 x10^3/uL (1.8-7.7); NEUT % 53 % (31-73); PLATELET COUNT 253 x10^3/uL (140-400); RED BLOOD COUNT 4.34 x10^6/uL (3.50-5.40); RED CELL DISTRIBUTION WIDTH 13.3 % (11.5-14.5); WHITE BLOOD COUNT 5.2 x10^3/uL (4.0-11.0)
[2021-01-06 10:37] LABS: BILIRUBIN,URINE NEGATIVE (NEG); CLARITY,URINE CLEAR; COLOR,URINE YELLOW; NITRITE,URINE NEGATIVE (NEG); PROTEIN,URINE NEGATIVE (NEG-TRACE); UROBILINOGEN,URINE 0.2 mg/dL (0.2 mg/dL)
[2021-01-06 10:47] LABS: BACTERIA,URINE FEW /HPF (0-FEW); RBC,URINE 0 /HPF (0-2)
[2021-01-06 10:56] LABS: ALBUMIN 3.8 g/dL (3.4-5.0); ALBUMIN/GLOBULIN RATIO 1.1 (1.0-1.7); CALCIUM 9.5 mg/dL (8.5-10.1); CREATININE 0.6 mg/dL (0.6-1.0); GFR 104.2; POTASSIUM 4.4 mmol/L (3.5-5.1); TOTAL BILIRUBIN 0.5 mg/dL (0.2-1.0); TOTAL PROTEIN 7.4 g/dL (6.4-8.2)
[2021-01-06 10:57] LABS: CHOLESTEROL/HDL RATIO 4.6
[2021-01-07 01:09] LABS: HEMOGLOBIN A1C 7.1 % (4.8-5.6)
== END ==
LOC: LAB 10:11
PROVIDERS: ATTEND Family Medicine
DX: Z13.9 Encounter for screening, unspecified (principal); E11.9 Type 2 diabetes mellitus without complications; R10.9 Unspecified abdominal pain
CPT/HCPCS: 36415; 80053; 80061; 81001; 83036; 85025

== ENCOUNTER → 2021-07-26 | Outpatient (CLI) | payer OTHER ==
[2021-07-26 11:34] LABS: CALCIUM 9.3 mg/dL (8.5-10.1); CHOLESTEROL/HDL RATIO 3.8; CREATININE 0.5 mg/dL (0.6-1.0); GFR 128.6; POTASSIUM 4.7 mmol/L (3.5-5.1)
[2021-07-27 23:23] LABS: HEMOGLOBIN A1C 5.8 % (4.8-5.6)
== END ==
LOC: LAB 10:20
PROVIDERS: ATTEND Family Medicine
DX: E11.9 Type 2 diabetes mellitus without complications (principal)
CPT/HCPCS: 36415; 80048; 80061; 82043; 83036

== ENCOUNTER → 2021-08-09 | Outpatient (CLI) | payer OTHER ==
--- NOTE | 2021-08-09 15:51 | RAD ---
INDICATION : Routine Screening. COMPARISON: Multiple priors including July 2019 TECHNIQUE: Standard mammogram screening views of the bilateral breasts were obtained with 3D tomosynt hesis. CAD was utilized. FINDINGS: The breasts are scattered density. No definite suspicious mass. IMPRESSION: BI-RADS Category 1: Negative. Recommend repeat screening examination in one year. The patient was placed into the recall system with a suggested recall date for follow up imaging. Mammography is the most sensitive method for finding small breast cancers, but it does not detect the m all and is not a substitute for careful clinical examination. A negative mammogram does not negate a clinically suspicious finding and should not result in delay in biopsying a clinically suspicious abnormality. Electronically signed by: Marshal Thomason MD (08/09/2021 3:48 PM) [id number]
== END ==
LOC: MAMMO 14:55
PROVIDERS: ATTEND Family Medicine
DX: Z12.31 Encounter for screening mammogram for malignant neoplasm of breast (principal)
CPT/HCPCS: 77063; 77067

== ENCOUNTER → 2021-10-04 | Outpatient (CLI) | payer OTHER | LOC: LAB 09:17 | PROVIDERS: ATTEND Internal Medicine Pulmonary Disease | DX: U07.1 COVID-19 (principal) | CPT/HCPCS: U0003; U0005 ==

== ENCOUNTER → 2022-02-07 | Outpatient (CLI) | payer OTHER ==
[2022-02-07 11:54] LABS: BASO # 0.1 x10^3/uL (0.0-0.2); BASO % 1 % (0-3); EOS # 0.4 x10^3/uL (0.0-0.7); EOS % 8 % (0-3); HEMATOCRIT 39.2 % (36.0-47.0); HEMOGLOBIN 13.1 g/dL (12.0-15.5); LYMPH # 2.1 x10^3/uL (1.0-4.8); LYMPH % 40 % (24-48); MEAN CORPUSCULAR HEMOGLOBIN 30 pg (25-35); MEAN CORPUSCULAR HGB CONC 33 g/dL (31-37); MEAN CORPUSCULAR VOLUME 91 fL (79-100); MONO # 0.4 x10^3/uL (0.0-1.1); MONO % 7 % (0-9); NEUT # 2.3 x10^3/uL (1.8-7.7); NEUT % 44 % (31-73); PLATELET COUNT 260 x10^3/uL (140-400); RED CELL DISTRIBUTION WIDTH 13.6 % (11.5-14.5); WHITE BLOOD COUNT 5.3 x10^3/uL (4.0-11.0)
[2022-02-07 12:15] LABS: ALBUMIN 3.8 g/dL (3.4-5.0); CALCIUM 9.4 mg/dL (8.5-10.1); CREATININE 0.5 mg/dL (0.6-1.0); GFR 128.1; TOTAL BILIRUBIN 0.7 mg/dL (0.2-1.0); TOTAL PROTEIN 7.6 g/dL (6.4-8.2)
[2022-02-07 12:17] LABS: CHOLESTEROL/HDL RATIO 3.7
[2022-02-08 01:10] LABS: HEMOGLOBIN A1C 5.6 % (4.8-5.6)
== END ==
LOC: LAB 11:34
PROVIDERS: ATTEND Family Medicine
DX: E11.9 Type 2 diabetes mellitus without complications (principal); F41.1 Generalized anxiety disorder; E66.9 Obesity, unspecified
CPT/HCPCS: 36415; 80053; 80061; 82043; 83036; 85025